=== PATIENT | male | born 1935 | race Caucasian/White ===

== ENCOUNTER 2019-11-06 15:59 | Emergency (ER) | payer MEDICARE, BC ==
[2019-11-06 16:12] VITALS: RESP 18; TEMP 98.4
[2019-11-06] MEDS ORDERED: TETRACAINE 0.5% OPHTH (PF) DROPS 4 ML BTL LEFT EYE STA (17:02)
[2019-11-06] MEDS ORDERED: TROPICAMIDE 1% OPHTH DROPS 2 ML BTL LEFT EYE STA (17:06)
[2019-11-06] MEDS ORDERED: TROPICAMIDE 1% OPHTH DROPS 2 ML BTL LEFT EYE SCH (17:15)
[2019-11-06] MEDS ORDERED: ASPIRIN 81 MG PO STA (18:13)
--- NOTE | 2019-11-06 18:48 | ED ---
General Adult HPI - General Chief complaint: Eye Problems Stated complaint: loss of vision Time Seen by Provider: 11/06/19 16:24 Source: patient, RN notes reviewed, old records reviewed Mode of arrival: ambulatory Limitations: no limitations - History of Present Illness Initial comments: 83-year-old male patient didn't see for evaluation of loss of eyesight in his left eye which occurred today about 10 AM. Patient reports that he woke up he was feeling normal. She states that also he began having some flashes and floaters in his left eye and then it was as if occurred and was pulled over. Patient states that he feels that he is seeing through a fog. Denies any pain. Neither headaches. Denies any other acute complaints. Systemic: Pt denies fatigue, fever/chills, rash. Pt denies weakness, night sweats, weight loss. Neuro: Pt denies headache, visual disturbances, syncope or pre-syncope. HEENT: Pt denies ocular discharge or irritation, otalgia, rhinorrhea, pharyngitis or notable lymphadenopathy. Cardiopulmonary: Pt denies chest pain, SOB, heart palpitations, dyspnea on exertion. Abdominal/GI: Pt denies abdominal pain, n/v/d. : Pt denies dysuria, burning w/ urination, frequency/urgency. Denies new onset urinary or bowel incontinence. MSK: Pt denies myalgia, loss of strength or function in extremities. Neuro: Pt denies new onset weakness, paresthesias. - Related Data Home Medications Medication Instructions Recorded Confirmed Aspirin EC [Ecotrin] 81 mg PO DAILY 01/11/14 04/07/14 Spironolactone [Aldactone] 6.25 mg PO QAM 01/11/14 04/11/14 carvediloL [Coreg*] 25 mg PO BID 01/11/14 04/11/14 lisinopriL [Prinivil] 20 mg PO QAM 01/11/14 04/11/14 Simvastatin [Zocor] 40 mg PO HS 04/07/14 04/11/14 Allergies Allergy/AdvReac Type Severity Reaction Status Date / Time No Known Allergies Allergy Verified 11/06/19 16:12 Review of Systems ROS Statement: Those systems with pertinent positive or pertinent negative responses have been documented in the HPI. ROS Other: All systems not noted in ROS Statement are negative. Past Medical History Past Medical History: Coronary Artery Disease (CAD), Hyperlipidemia, Hy pertension, Myocardial Infarction ([place]) Additional Past Medical History / Comment(s): HX ISCHEMIC CARDIOMYOPATHY,PVC'S,VENTRICULAR TACHYCARDIA,OLD [place] Last Myocardial Infarction Date:: UNKNOWN History of Any Multi-Drug Resistant Organisms: None Reported Past Surgical History: Coronary Bypass/CABG, Heart Catheterization Additional Past Surgical History / Comment(s): CABG 2009. EP STUDY 01/12/14 Past Anesthesia/Blood Transfusion Reactions: No Reported Reaction Past Psychological History: No Psychological Hx Reported Smoking Status: Former smoker Past Alcohol Use History: Occasional Past Drug Use History: None Reported - Past Family History Mother Additional Family Medical History / Comment(s): heart problems Brother(s) Additional Family Medical History / Comment(s): heart problems General Exam - General Exam Comments Initial Comments: Constitutional: NAD, AOX3, Pt has pleasant affect. HEENT: NC/AT, trachea midline, neck supple, no lymphadenopathy. Posterior pharynx non erythematous, without exudates. External ears appear normal, without discharge. Mucous membranes moist. EOM intact. There is no scleral icterus. No pallor noted. Cardiopulmonary: RRR, no murmurs, rubs or gallops, no JVD noted. Lungs CTAB in anterior and posterior yoon. No peripheral edema. Abdominal exam: Abdomen soft and non-distended. Abdomen non-tender to palpation in all 4 quadrants. Bowel sounds active in LLQ. No hepatosplenomegaly. No ecchymosis Neuro: CN II-XII intact. No nuchal rigidity. No raccon eyes, no trimble sign, no hemotympanum. No cervical spinal tenderness. MSK: Full active ROM in upper and lower extremities, 5/5 stregnth. Limitations: no limitations Course Vital Signs 11/06/19 16:05 Temperature 98.4 F Pulse Rate 104 H Respiratory 18 Rate Blood Pressure 126/81 O2 Sat by Pulse 100 Oximetry Medical Decision Making - Medical Decision Making 83-year-old male patient presented to ED for visual disturbance. Patient vital signs are stable, afebrile. Physical exam did display intact extraocular mov ements. IOP average of 10 bilaterally. [employer] was contacted Dr. Moulton who came to the emergency department examined patient. He reports the patient has ischemic optic neuritis with retinal swelling he recommended a full aspirin and transferred to retinal specialist. Patient will go by private vehicle. Dr. Bedoya accepts. Case diiscused with Dr. Hensley. Disposition Clinical Impression: Ischemic optic neuritis of left eye Disposition: OTHER INSTITUTION NOT DEFINED Condition: Serious Is patient prescribed a controlled substance at d/c from ED?: No Referrals: Tg Luna MD [Primary Care Provider] - 1-2 days - Out of Hospital Transfer - Req. Specs Out of Hospital Transfer - Requested Specifics: Other Emergency Center ([facility] - Retinal Specialist)
[2019-11-06 19:02] VITALS: BP 123/79; PULSE 98
--- NOTE | 2019-11-06 20:08 | CONS ---
CONSULTATION CHIEF COMPLAINT: The patient noticed decreased vision gradually at 10:00 am today followed by complete loss of vision in the left eye. The patient denies any history of previous surgery or previous loss of vision. The patient denies any pain in the area around the eye or in temporal region. MEDICAL HISTORY: Reviewed. EYE EXAMINATION: Vision right eye is 20/30. Left eye is light perception only. Confrontation right eye is normal. The pupils show relative afferent pupillary defect in the left eye. Dilated exam shows ( ) and retina in the left eye shows optic discs around 0.4 with retinal ischemia in the arcade with peripheral retinal degeneration. ASSESSMENT: 1. Left ischemic optic neuritis. 2. Rule out temporal arteritis. 3. Retinal edema, possible from the occlusion. The patient is advised to see a retina specialist tonight. OCT not available in the emergency room. I advised a whole aspirin to be given to the patient and sedimentation rate. Thank you and I will see the patient again in the office on Thursday. MMOKSANA / IJN: [id number] /
== END 2019-11-06 19:22 | disposition other institution (70) ==
LOC: EC 15:59
DX: H46.8 Other optic neuritis (principal); I25.10 Atherosclerotic heart disease of native coronary artery without angina pectoris; E78.5 Hyperlipidemia, unspecified; I10 Essential (primary) hypertension; I25.5 Ischemic cardiomyopathy; I25.2 Old myocardial infarction; Z79.82 Long term (current) use of aspirin; Z79.899 Other long term (current) drug therapy; Z95.1 Presence of aortocoronary bypass graft; Z95.5 Presence of coronary angioplasty implant and graft; Z87.891 Personal history of nicotine dependence
CPT/HCPCS: 99285

== ENCOUNTER → 2019-11-29 | Outpatient (CLI) | payer MEDICARE, BC ==
[2019-11-29 11:19] LABS: HCT 45.7 % (39.0-53.0); HGB 14.6 gm/dL (13.0-17.5); MCH 30.9 pg (25.0-35.0); MCV 96.4 fL (80.0-100.0); Mean Platelet Volume 7.1; Platelet Count 243 k/uL (150-450); RBC 4.74 m/uL (4.30-5.90); RDW 13.6 % (11.5-15.5)
[2019-11-29 11:52] LABS: Magnesium 2.1 mg/dL (1.6-2.3)
== END | disposition home or self-care (01) ==
LOC: LABPAT 10:06
PROVIDERS: ATTEND Internal Medicine Cardiovascular Disease
DX: Z01.818 Encounter for other preprocedural examination (principal); I34.0 Nonrheumatic mitral (valve) insufficiency
CPT/HCPCS: 36415; 82565; 83735; 84520; 85027

== ENCOUNTER → 2019-12-05 | Day surgery (SDC) | payer MEDICARE, BC ==
[2019-12-01 09:46] VITALS: BMI 22.3
[~2019-12-05] MED LIST: BENZOCAINE SPRAY 1 CAN TOPICAL ONE; SODIUM CHLORIDE 0.9% 1,000 ML IV SCH; SODIUM CHLORIDE 0.9% 500 ML 500 ML IV ONE; fentaNYL (PF) 50 MCG/ML 2 ML AMP IV ONE; fentaNYL (PF) 50 MCG/ML 2 ML AMP ONE
[2019-12-05 06:49] VITALS: TEMP 98
[2019-12-05] MEDS: MIDAZOLAM 2 MG/2 ML VIAL IV ONE ×2 (07:42→07:46)
[2019-12-05 08:02] VITALS: RESP 12
--- NOTE | 2019-12-05 08:10 | P.TEE ---
Indications for Procedure(s): History of central retinal artery occlusion Date of Procedure: 12/05/19 Preoperative Diagnosis: History of CVA Postoperative Diagnosis: History of CVA, atrial fibrillation Description of Procedure(s): INDICATION: This is a 83-year-old gentleman with history of previous bypass surgery and chronic atrial fibrillation, who was recently admitted to [facility] with a diagnosis of central retinal artery occlusion and visual loss. Patient is advised to have SIOBHAN examination for further evaluation CONSENT:. Informed verbal consent was obtained from the patient PROCEDURE:. Patient was brought to the lab in a fasting state. He was prepped and draped in the usual fashion. The throat was sprayed with Hurricaine. Patient was given IV Versed 1.5 mg and fentanyl 37.5 g in boluses. A lubricated Omni probe was introduced in the oropharynx and was advanced into the esophagus. Multiple views were obtained. Color, pulsed and continuous Doppler studies were performed. Saline contrast injection is performed. Patient tolerated the procedure well. The duration of the procedure was 11 minutes FINDINGS:. The aortic valve showed calcification, especially of the noncoronary cusp. Opening excursion by planimetry measures 1.9 cm, suggestive of mild aortic stenosis. No aortic regurgitation. The aortic root measures 4 cm suggestive of mild dilatation. The mitral valve shows mild regurgitatio. T ricuspid valve showed moderate regurgitation. The interatrial septum appeared to be intact without any shunt. Contrast saline bubble injection also did not show any coffee bubbles. There is biatrial enlargement. There is smoking both atria, more so in the left atrium. The left atrial appendage is free of any clot. The left ventricle function appears to be mildly impaired. There is moderate calcified plaque in the aorta IMPRESSION: #1. No PFO #2. No clot in the left atrial appendage. #3. Smoking both atria #4. Biatrial enlargement. #5. Calcified aortic valve, especially of the noncoronary cusp with mild aortic stenosis. #6. Mild mitral regurgitation. #7. Mildly impaired LV function #8. Moderate calcified plaque in the aorta PLAN: Continue maximal medical therapy including antiplatelet agents and anticoagulation.
[2019-12-05 08:55] VITALS: BP 110/72
[2019-12-05 09:27] VITALS: PULSE 96
== END ==
LOC: CATHCVL 06:06
PROVIDERS: ATTEND Internal Medicine Cardiovascular Disease
DX: I08.3 Combined rheumatic disorders of mitral, aortic and tricuspid valves (principal); I48.20 Chronic atrial fibrillation, unspecified; I49.3 Ventricular premature depolarization; H34.9 Unspecified retinal vascular occlusion; I49.5 Sick sinus syndrome; I45.10 Unspecified right bundle-branch block; I25.5 Ischemic cardiomyopathy; I25.10 Atherosclerotic heart disease of native coronary artery without angina pectoris; I44.0 Atrioventricular block, first degree; I47.2 Ventricular tachycardia; I50.9 Heart failure, unspecified; Z95.1 Presence of aortocoronary bypass graft; Z79.01 Long term (current) use of anticoagulants; Z79.82 Long term (current) use of aspirin; Z79.899 Other long term (current) drug therapy; I11.0 Hypertensive heart disease with heart failure; E78.5 Hyperlipidemia, unspecified; Z82.49 Family history of ischemic heart disease and other diseases of the circulatory system; Z86.73 Personal history of transient ischemic attack (TIA), and cerebral infarction without residual deficits
CPT/HCPCS: 93312; 93320; 93325; J2250; J3010

== ENCOUNTER 2020-09-13 10:49 | Observation (INO) | payer MEDICARE, BC ==
--- NOTE | 2020-09-13 11:38 | ED ---
Fall HPI - General Chief Complaint: Fall Stated Complaint: Fall, R Leg weakness Source: patient, family, Caregiver Mode of arrival: wheelchair Limitations: no limitations - History of Present Illness Initial Comments: 84-year-old white male, alert and oriented 4 and well-appearing, presents to the emergency room with his son with complaints of left leg weakness seemed to be no while walking. Son states that yesterday when he was getting up out of the chair with his assistance and left leg gave out patient fell to the ground. Patient states that his son helped him by the left arm as he fell to the ground and he has had some pain with movement above his head. Patient denies any other injuries and denies pain at this time. This has not happened before he has not had any back problems, no back surgeries. He is just recovering from Covid and recently taken off of oxygen. Patient denies any incontinence of bowel or bladder. He denies pain at this time. Son at bedside is concerned about weakness in the left leg and although he had just one fall he is concerned that the patient will follow multiple times due to the left leg giving out. Patient states that the weakness is related to the pain he feels deep in the muscle of his left buttock. He denies pain at rest but states the leg will give out when he tries to walk. Complaint: fall -: days(s) (1) Fall From: standing When Fall Occurred: other (Yesterday around 5 PM) Fall Witnessed: yes, by family Place Fall Occurred: home Loss of Consciousness: none Prolonged Down Time?: no Symptoms Prior to Fall: other (Left leg gave out) Severity scale (1-10): 0 Associated Symptoms: other (Pain deep in the left buttock) - Related Data Home Medications Medication Instructions Recorded Confirmed Apixaban [Eliquis] 5 mg PO BID 12/05/19 12/05/19 Aspirin 81 mg PO DAILY 12/05/19 12/05/19 Lisinopril [Zestril] 20 mg PO DAILY 12/05/19 12/05/19 Metoprolol Succinate (ER) [Toprol 100 mg PO DAILY 12/05/19 12/05/19 XL] Rosuvastatin [Crestor] 40 mg PO DAILY 12/05/19 12/05/19 Spironolact/Hydrochlorothiazid 1 each PO DAILY 12/05/19 12/05/19 [Aldactazide 25-25 MG] Allergies Allergy/AdvReac Type Severity Reaction Status Date / Time No Known Allergies Allergy Verified 09/13/20 10:54 Review of Systems ROS Statement: Those systems with pertinent positive or pertinent negative responses have been documented in the HPI. ROS Other: All systems not noted in ROS Statement are negative. Past Medical History Past Medical History: Coronary Artery Disease (CAD), Hyperlipidemia, Hypertension, Myocardial Infarction ([place]) Additional Past Medical History / Comment(s): HX ISCHEMIC CARDIOMYOPATHY,PVC'S,VENTRICULAR TACHYCARDIA,OLD [place] Last Myocardial Infarction Date:: UNKNOWN History of Any Multi-Drug Resistant Organisms: None Reported Past Surgical History: Coronary Bypass/CABG, Heart Catheterization Additional Past Surgical History / Comment(s): CABG 2009. EP STUDY 01/12/14 Past Anesthesia/Blood Transfusion Reactions: No Reported Reaction Past Psychological History: No Psychological Hx Reported Smoking Status: Former smoker Past Alcohol Use History: Occasional - Past Family History Mother Additional Family Medical History / Comment(s): heart problems Brother(s) Additional Family Medical History / Comment(s): heart problems Son(s) Additional Family Medical History / Comment(s): General Exam Limitations: no limitations, physical limitation (Left leg weakness with ambulation) General appearance: alert, in no apparent distress Head exam: Present: atraumatic, normocephalic, normal inspection Eye exam: Present: normal appearance, PERRL, EOMI, other (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 Absent: scleral icterus, conjunctival injection, periorbital swelling ENT exam: Present: normal exam, normal oropharynx, mucous membranes moist Neck exam: Present: normal inspection, full ROM. Absent: tenderness, meningismus, lymphadenopathy, thyromegaly Respiratory exam: Present: normal lung sounds bilaterally. Absent: respiratory distress, wheezes, rales, rhonchi, stridor, chest wall tenderness, accessory muscle use, decreased breath sounds, prolonged expiratory Cardiovascular Exam: Present: regular rate, normal rhythm, normal heart sounds. Absent: systolic murmur, diastolic murmur, rubs, gallop, clicks GI/Abdominal exam: Present: soft, normal bowel sounds. Absent: distended, tenderness, guarding, rebound, rigid Extremities exam: Present: normal inspection, normal capillary refill. Absent: tenderness, pedal edema, joint swelling, calf tenderness Left Shoulder Exam: Present: tenderness, other (Pain with movement above head). Absent: full ROM, swelling, abrasion, laceration, ecchymosis, deformity, crepitus, dislocation, erythema, tenderness over AC joint Upper Arm exam: Present: normal inspection Elbow exam: Present: normal inspection Forearm Wrist exam: Present: normal inspection Hand Wrist exam: Present: normal inspection Vascular: Present: normal capillary refill, radial pulse Back exam: Present: normal inspection, full ROM. Absent: tenderness, CVA tenderness (R), CVA tenderness (L), muscle spasm, paraspinal tenderness, vertebral tenderness, rash noted Expanded Back exam: Absent: saddle anesthesia Back exam: Negative Straight Leg Raising: Left, Right Neurological exam: Present: alert, oriented X3, CN II-XII intact Psychiatric exam: Present: normal affect, normal mood Skin exam: Present: warm, dry, intact, normal color. Absent: rash, cyanosis, diaphoretic, petechiae, pallor Course Vital Signs 09/13/20 10:54 Temperature 98.1 F Pulse Rate 64 Respiratory 18 Rate Blood Pressure 106/67 O2 Sat by Pulse 94 L Oximetry - Reevaluation(s) Reevaluation #1: 09/13/20 13:[address] Becker who will come speak with pt and family. Time: 13:48 Medical Decision Making - Medical Decision Making There are multiple rib fractures on the left including the third fourth and fifth 6 and likely seventh ribs, patient states he is an old fractures from 2008 when he fell off of a roof. He denies any pain with palpation there is no bruising to the posterior or anterior chest. There is patchy airspace disease bilaterally with left basilar pleural parenchymal disease. This may be consistent with patient's recent recovery of Covid . There is osteoarthritic changes of the lumbar spine with mild retrolisthesis of L4-L5. She is able to stand on his own denies any weakness in the left leg. Son concerned that the patient will fall again at home due to leg weakness and wants him admitted. Patient does not want to be admitted and wants to follow up outpatient but is agreeable to admission at this time. He denies pain at this time. Case discussed with Dr. Lynch Disposition Clinical Impression: Fall, Weakness Disposition: ADMITTED IP TO THIS HOSP Condition: Fair Referrals: Matte,[place], MD [Primary Care Provider] - 1-2 days Decision Date: 09/13/20 Decision Time: 13:41
--- NOTE | 2020-09-13 12:33 | XR ---
EXAMINATION TYPE: XR chest 2V DATE OF EXAM: 09/13/2020 COMPARISON: 08/17/2009 HISTORY: Fall TECHNIQUE: Frontal and lateral views of the chest are obtained. FINDINGS: There is patchy airspace disease bilaterally with left basilar pleural-parenchymal disease. Cardiac silhouette is unchanged with sternotomy changes. IMPRESSION: There is patchy airspace disease bilaterally with left basilar pleural-parenchymal disease.
--- NOTE | 2020-09-13 12:36 | XR ---
EXAMINATION TYPE: XR lumbar spine 2 or 3V DATE OF EXAM: 09/13/2020 CLINICAL HISTORY: Low back pain after fall TECHNIQUE: Frontal, lateral, and coned-down images of the lumbar spine are obtained. COMPARISON: None FINDINGS: There are 5 lumbar type vertebral bodies identified. There is mild retrolisthesis of L4 on 5 measuring 4 mm. Multilevel endplate sclerosis and osteophytosis with lower lumbar facet arthropath y is seen. Vascular calcifications are noted. 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
--- NOTE | 2020-09-13 12:39 | XR ---
EXAMINATION TYPE: XR shoulder complete LT DATE OF EXAM: 09/13/2020 CLINICAL HISTORY: Pain after fall TECHNIQUE: Three views of the left shoulder are obtained. COMPARISON: None. FINDINGS: There is no acute fracture/dislocation evident in the left shoulder. There are degenerativ e changes of the left glenohumeral and acromioclavicular joints. There are multiple left-sided rib fr actures of the left third, fourth, fifth, sixth and likely seventh ribs. IMPRESSION: Degenerative changes of the left shoulder. Multiple left rib fractures.
[2020-09-13] MEDS ORDERED: NALOXONE 0.4 MG/ML 1 ML VIAL IV PRN (14:20)
[2020-09-13] MEDS ORDERED: ACETAMINOPHEN TAB 325 MG TAB PO PRN (14:20)
[2020-09-13 14:22] LABS: Basophils # (A) 0.1 k/uL (0-0.2); Basophils % (A) 1 %; Eosinophils # (A) 0.1 k/uL (0-0.7); Eosinophils % (A) 1 %; HCT 37.7 % (39.0-53.0); HGB 12.8 gm/dL (13.0-17.5); Lymphocytes % (A) 21 %; MCH 32.3 pg (25.0-35.0); MCHC 33.9 g/dL (31.0-37.0); MCV 95.3 fL (80.0-100.0); Mean Platelet Volume 6.8; Monocytes # (A) 0.7 k/uL (0-1.0); Monocytes % (A) 8 %; Neutrophils # (A) 6.3 k/uL (1.3-7.7); Neutrophils % (A) 68 %; Platelet Count 254 k/uL (150-450); RBC 3.96 m/uL (4.30-5.90); RDW 14.7 % (11.5-15.5); WBC 9.3 k/uL (3.8-10.6)
[2020-09-13 14:32] LABS: Albumin 3.3 g/dL (3.5-5.0); Calcium 8.8 mg/dL (8.4-10.2); Potassium 4.6 mmol/L (3.5-5.1); Total Bilirubin 0.7 mg/dL (0.2-1.3); Total Protein 6.4 g/dL (6.3-8.2)
[2020-09-13 14:33] LABS: Partial Thromboplastin Time 27.9 sec (22.0-30.0); Prothrombin Time 11.1 sec (9.0-12.0)
--- NOTE | 2020-09-13 16:50 | P.HPIM ---
History of Present Illness H&P Date: 09/13/20 Chief Complaint: Fall This is a 84-year-old male with past medical history noted below who presented to the emergency room with his son after he had a fall at home. Patient and his son reporting history together. Apparently patient had an episode of left leg weakness while he was getting out of the chair and his leg gave out and patient subsequently fell to the ground. He was able to get up with assistance of his son that denies any injury or any pain anywhere. His son was concerned as patient never had a fall before and was also concern about left lower extremity weakness so he decided to bring him to the emergency room. Patient himself denies any pain. No headache or back pain. He told me that he is ready to go home. He denies any urinary incontinence or numbness anywhere. Patient has 5 out of 5 muscle strength throughout his 4 extremities. He was able to get up and ambulate in the ER with no difficulty. His son was insistent that he want us to figure out why his left leg gave out on him and he is very concerned and does not want to take him home for physical therapy assessment. Given the patient was able to get up and ambulate in the ER I offered the son to give the patient a prescription for a walker for gait instability with plan to follow-up with physical therapy outpatient that he refused and insisted to keep his father in the hospital Review of Systems Review of system: 14 points review of systems were obtained and were negative except to what were mentioned in the HPI. Past Medical History Past Medical History: Coronary Artery Disease (CAD), Hyperlipidemia, Hy pertension, Myocardial Infarction ([place]) Additional Past Medical History / Comment(s): HX ISCHEMIC CARDIOMYOPATHY,PVC'S,VENTRICULAR TACHYCARDIA,OLD [place] Last Myocardial Infarction Date:: UNKNOWN History of Any Multi-Drug Resistant Organisms: None Reported Past Surgical History: Coronary Bypass/CABG, Heart Catheterization Additional Past Surgical History / Comment(s): CABG 2009. EP STUDY 01/12/14 Past Anesthesia/Blood Transfusion Reactions: No Reported Reaction Past Psychological History: No Psychological Hx Reported Smoking Status: Former smoker Past Alcohol Use History: Occasional - Past Family History Mother Additional Family Medical History / Comment(s): heart problems Brother(s) Additional Family Medical History / Comment(s): heart problems Son(s) Additional Family Medical History / Comment(s): Medications and Allergies Home Medications Medication Instructions Recorded Confirmed Type Apixaban [Eliquis] 5 mg PO BID 12/05/19 09/13/20 History Aspirin 81 mg PO DAILY 12/05/19 09/13/20 History Spironolact/Hydrochlorothiazid 1 tab PO DAILY 12/05/19 09/13/20 History [Aldactazide 25-25 MG] Metoprolol Succinate [Toprol XL] 25 mg PO DAILY 09/13/20 09/13/20 History Rosuvastatin Calcium [Crestor] 40 mg PO DAILY 09/13/20 09/13/20 History lisinopriL [Zestril] 20 mg PO BID 09/13/20 09/13/20 History Allergies Allergy/AdvReac Type Severity Reaction Status Date / Time No Known Allergies Allergy Verified 09/13/20 14:55 Physical Exam Vitals: Vital Signs Temp Pulse Resp BP Pulse Ox 09/13/20 13:58 65 20 114/76 100 09/13/20 10:54 98.1 F 64 18 106/67 94 L Intake and Output 09/13/20 09/13/20 09/13/20 06:59 14:59 22:59 Other: Weight 90.718 kg General: The patient is awake and alert, in no distress Eye: there is normal conjunctiva bilaterally. Neck: The neck is supple, there is no JVD. Cardiovascular: Normal S1-S2, no S3-S4, no murmurs. Respiratory: Lungs clear to auscultation bilaterally Gastrointestinal: Abdomen is soft, nontender Musculoskeletal: There is no pedal edema. Neurological:. Speech is normal. Skin: Skin is warm and dry Results CBC & Chem 7: 09/13/20 13:49 09/13/20 13:49 Labs: Abnormal Lab Results - Last 24 Hours (Table) 09/13/20 09/13/20 Range/Units 13:49 13:49 RBC 3.96 L (4.30-5.90) m/uL Hgb 12.8 L (13.0-17.5) gm/dL Hct 37.7 L (39.0-53.0) % Sodium 134 L (137-145) mmol/L BUN 28 H (9-20) mg/dL Glucose 100 H (74-99) mg/dL Albumin 3.3 L (3.5-5.0) g/dL Assessment and Plan Assessment: 1. Fall without any injury. X-rays in the ER reviewed showed no acute findings or fractures. Old rib fractures noted. PT/OT consulted for further evaluation. 2. Chronic medical problems, ischemic cardiomyopathy with underlying systolic heart failure not in exacerbation, hypertension, hyperlipidemia Today, I reviewed his medication list and lab work results. Tinea current regimen. DVT prophylaxis with SCDs. Awaiting physical therapy evaluation. Anticipate discharge home tomorrow.
[2020-09-13 20:02] VITALS: RESP 16
[2020-09-13] MEDS: APIXABAN 5 MG TAB PO SCH (21:14)
[2020-09-14] MEDS: lisinopriL 20 MG TAB PO SCH ×2 (01:20→08:31)
[2020-09-14 08:03] VITALS: BP 95/62; PULSE 76; TEMP 97.9
[2020-09-14] MEDS: APIXABAN 5 MG TAB PO SCH (08:35)
[2020-09-14] MEDS ORDERED: ATORVASTATIN 80 MG TAB PO SCH (09:00)
[2020-09-14] MEDS ORDERED: METOPROLOL SUCCINATE (ER) 25 MG TAB.ER.24H PO SCH (09:00)
[2020-09-14] MEDS ORDERED: SPIRONOLACTONE-HCTZ 25-25MG 1 EACH TAB PO SCH (09:00)
[2020-09-14] MEDS ORDERED: ASPIRIN 81 MG PO SCH (09:00)
--- NOTE | 2020-09-14 21:38 | P.DS ---
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 Patient had recently traveled back to his house and then sat still for another 2 hours. When he got up his left leg gave out. Son did not feel comfortable taking him home and requested admission. Vital s igns are within normal limits. Laboratory analysis was unremarkable for age. He was admitted and monitored. He had been up and walking to the bathroom well with nursing. He was seen by physical therapy who felt he was appropriate for discharge home with a walker and home health. Patient denied any back, hip, or chest pain. His chest x-ray did demonstrate rib fractures which are known an old after he fell off a roof in 2008. Lumbar spine x-ray showed multilevel disc disease and osteoarthritic changes with mild retrolisthesis of L4 and L5. Shoulder x-ray showed degenerative changes of the left shoulder. Follow-up: Dr. Henderson in 2-3 days. [facility] for physical therapy. Patient seen and examined at bedside. Denies any pain. Feels at baseline. We discussed that his fall was likely secondary to his osteoarthritis and prolonged immobility in his car trip and then sitting in his chair. Patient is aware and we discussed that he would benefit from a walker and home health. Vital signs reviewed and stable. General: non toxic, no distress, appears at stated age Derm: warm, dry Head: atraumatic, normocephalic, symmetric Eyes: EOMI, no lid lag, anicteric sclera Mouth: no lip lesion, mucus membranes moist Cardiovascular: S1S2 reg, no murmur, positive posterior tibial pulse bilateral, Lungs: CTA bilateral, no rhonchi, no rales , no accessory muscle use Abdominal: soft, nontender to palpation, no guarding, no appreciable organomegaly Ext: no gross muscle atrophy, no edema, no contractures Neuro: CN II-XI grossly intact, no focal neuro deficits, bilateral hip flexor weakness. Antalgic gait. Psych: Alert, oriented, appropriate affect A total of 25 minutes of time were spent preparing this complex discharge summary . Patient Condition at Discharge: Fair Plan - Discharge Summary Discharge Rx Participant: No New Discharge Prescriptions: Continue Aspirin 81 mg PO DAILY Spironolact/Hydrochlorothiazid [Aldactazide 25-25 MG] 1 tab PO DAILY Apixaban [Eliquis] 5 mg PO BID Metoprolol Succinate [Toprol XL] 25 mg PO DAILY lisinopriL [Zestril] 20 mg PO BID Rosuvastatin Calcium [Crestor] 40 mg PO DAILY Discharge Medication List Apixaban [Eliquis] 5 mg PO BID 12/05/19 [History] Aspirin 81 mg PO DAILY 12/05/19 [History] Spironolact/Hydrochlorothiazid [Aldactazide 25-25 MG] 1 tab PO DAILY 12/05/19 [History] Metoprolol Succinate [Toprol XL] 25 mg PO DAILY 09/13/20 [History] Rosuvastatin Calcium [Crestor] 40 mg PO DAILY 09/13/20 [History] lisinopriL [Zestril] 20 mg PO BID 09/13/20 [History] Follow up Appointment(s)/Referral(s): [facility], [NON-STAFF] - 1 Week Tg Luna MD [Primary Care Provider] - 1-2 days Activity/Diet/Wound Care/Special Instructions: Activity: as tolerated Diet: heart healthy Special Instructions: Walker when up and standing Discharge Disposition: HOME WITH HOME HEALTH SERVICES
== END 2020-09-14 13:53 | disposition home health service (06) ==
LOC: EC 10:49 → 6NMEDSUR 13:48
PROVIDERS: ADMIT Internal Medicine; ATTEND Internal Medicine
DX: R26.89 Other abnormalities of gait and mobility (principal); M79.18 Myalgia, other site; I11.0 Hypertensive heart disease with heart failure; I50.22 Chronic systolic (congestive) heart failure; I25.5 Ischemic cardiomyopathy; E78.5 Hyperlipidemia, unspecified; M51.36 Other intervertebral disc degeneration, lumbar region; M47.816 Spondylosis without myelopathy or radiculopathy, lumbar region; M19.012 Primary osteoarthritis, left shoulder; M43.16 Spondylolisthesis, lumbar region; I25.10 Atherosclerotic heart disease of native coronary artery without angina pectoris; I25.2 Old myocardial infarction; I49.3 Ventricular premature depolarization; W18.30XA Fall on same level, unspecified, initial encounter; Y92.009 Unspecified place in unspecified non-institutional (private) residence as the place of occurrence of the external cause; Z79.01 Long term (current) use of anticoagulants; Z79.82 Long term (current) use of aspirin; Z79.899 Other long term (current) drug therapy; Z86.16 Personal history of COVID-19; Z87.81 Personal history of (healed) traumatic fracture; Z91.81 History of falling; Z95.1 Presence of aortocoronary bypass graft; Z87.891 Personal history of nicotine dependence; Z82.49 Family history of ischemic heart disease and other diseases of the circulatory system
CPT/HCPCS: 99284; 36415; 97161; 80053; 85025; 85610; 85730; 72100; 73030; 71046; G0378 ×2